=== PATIENT | female | born 1955 | race Caucasian/White ===

== ENCOUNTER 2020-05-05 08:14 | Day surgery (SDC) | payer BC ==
[~2020-05-05] VITALS: Ht 167.6 cm; Wt 84.5 kg
[2020-05-05 08:25] VITALS: BP 145/86
[2020-05-05] MEDS ORDERED: fentaNYL/PF 50MCG/1 ML 2ML syringe ONE (08:35)
[2020-05-05] MEDS ORDERED: MIDAZolam 5mg/5ml vial ONE (08:36)
[2020-05-05] MEDS ORDERED: ALBU18HF2 INH (08:38)
[2020-05-05 09:23] VITALS: BP 115/78
[2020-05-05 09:33] VITALS: BP 117/72
[2020-05-05 09:43] VITALS: BP 127/73
[2020-05-05 09:53] VITALS: BP 125/72
== END 2020-05-05 10:05 | disposition home or self-care (01) ==
LOC: GI LAB 08:14
PROVIDERS: ATTEND Internal Medicine Gastroenterology
DX: Z12.11 Encounter for screening for malignant neoplasm of colon (principal); K63.5 Polyp of colon; K64.0 First degree hemorrhoids; J45.909 Unspecified asthma, uncomplicated; Z86.010 Personal history of colon polyps; Z91.09 Other allergy status, other than to drugs and biological substances; Z79.899 Other long term (current) drug therapy
CPT/HCPCS: 45385; 99152; C1773; J2250; J3010; J7040; A4620